=== PATIENT | female | born 1995 | race Caucasian/White ===

== ENCOUNTER 2025-01-09 17:25 | Outpatient (CLI) ==
[~2025-01-09] VITALS: Ht 152.4 cm; Wt 72.2 kg
[2025-01-09 17:30] VITALS: BP 107/70
[2025-01-09] MEDS ORDERED: PRENTAB9 PO (18:35)
[2025-01-09] MEDS ORDERED: OMEP10CASR PO (18:35)
[2025-01-09] MEDS ORDERED: HOME MED LIST COMPLETE! XX SCH (18:35)
[2025-01-09] MEDS ORDERED: ALLE180T33 PO (18:35)
== END 2025-01-09 19:35 | disposition home or self-care (01) ==
LOC: M LDO 17:25
PROVIDERS: ATTEND Advanced Practice Midwife
DX: O36.8120 Decreased fetal movements, second trimester, not applicable or unspecified (principal); Z91.010 Allergy to peanuts; Z91.030 Bee allergy status; Z3A.25 25 weeks gestation of pregnancy
CPT/HCPCS: 59025; G0463

== ENCOUNTER → 2025-02-04 | Outpatient (CLI) | payer OTHER ==
[~2025-02-04] MED LIST: ALLE180T33 PO; OMEP10CASR PO; PRENTAB9 PO
== END ==
LOC: M WHC 09:31
PROVIDERS: ATTEND Obstetrics & Gynecology
DX: O36.5993 Maternal care for other known or suspected poor fetal growth, unspecified trimester, fetus 3 (principal); Z3A.28 28 weeks gestation of pregnancy; O99.212 Obesity complicating pregnancy, second trimester; E66.89 Other obesity not elsewhere classified; O32.1XX0 Maternal care for breech presentation, not applicable or unspecified

== ENCOUNTER 2025-02-05 13:17 | Outpatient (CLI) | payer OTHER ==
[~2025-02-05] VITALS: Ht 152.4 cm; Wt 80.1 kg
[2025-02-05] VITALS (7 sets, daily range): BP systolic 118–142; BP diastolic 58–73
[2025-02-05] MEDS ORDERED: HOME MED LIST COMPLETE! XX SCH (13:30)
[2025-02-05 14:56] LABS: HEMATOCRIT 36.7 % (36.0-47.0); HEMOGLOBIN 12.6 g/dl (12.0-15.5); MEAN CORPUSCULAR HEMOGLOBIN 30.7 pg (27.0-33.0); MEAN CORPUSCULAR HGB CONC 34.3 g/dl (32.0-36.5); MEAN CORPUSCULAR VOLUME 89.3 fl (80.0-96.0); PLATELET COUNT, AUTOMATED 125 10^3/uL (150-450); RED BLOOD COUNT 4.11 10^6/uL (4.00-5.40)
[2025-02-05 15:12] LABS: TOTAL PROTEIN,RANDOM URINE 48.4 MG/DL (0.0-14.0)
[2025-02-05 15:17] LABS: LDH LACTATE DEHYDROGENASE 157 U/L (120-246)
[2025-02-05 15:18] LABS: ALBUMIN 2.6 G/DL (3.2-5.2); ALKALINE PHOSPHATASE 63 U/L (35-104); ALT/SGPT 13 U/L (7.0-40); AST/SGOT 11 U/L (<34); BILIRUBIN,TOTAL 0.2 MG/DL (0.3-1.2); BLOOD UREA NITROGEN 12 MG/DL (9-23); CALCIUM LEVEL 8.6 MG/DL (8.5-10.1); CARBON DIOXIDE LEVEL 23 MMOL/L (20-31); CHLORIDE LEVEL 107 MMOL/L (98-107); CREATININE FOR GFR 0.62 MG/DL (0.55-1.30); GLOMERULAR FILTRATION RATE > 60.0 (>60); GLUCOSE, FASTING 83 MG/DL (60-100); POTASSIUM SERUM 4.1 MMOL/L (3.5-5.1); SODIUM LEVEL 140 MMOL/L (136-145); TOTAL PROTEIN 5.8 G/DL (5.7-8.2)
[2025-02-05] MEDS: BETAMETHASONE SOLUSPAN 6MG/ML 5ML VIAL IM STA (16:18)
[2025-02-05] MEDS: MAGNESIUM *L&D* 4GM/100ML BAG (40MG/ML) IV ONE (16:45)
[2025-02-05 17:55] LABS: HEPATITIS B SURFACE ANTIBODY POSITIVE (POSITIVE)
[2025-02-05 18:21] LABS: HIV 1&2 SCREEN NEGATIVE (NEGATIVE)
[2025-02-05 18:28] LABS: HEPATITIS C VIRUS ABY INDEX 0.03 INDEX (<0.8)
== END 2025-02-05 20:04 | disposition other institution (70) ==
LOC: M LDO 13:17
PROVIDERS: ATTEND Obstetrics & Gynecology
DX: O26.893 Other specified pregnancy related conditions, third trimester (principal); O36.5930 Maternal care for other known or suspected poor fetal growth, third trimester, not applicable or unspecified; O99.113 Other diseases of the blood and blood-forming organs and certain disorders involving the immune mechanism complicating pregnancy, third trimester; R03.0 Elevated blood-pressure reading, without diagnosis of hypertension; D69.6 Thrombocytopenia, unspecified; Z91.010 Allergy to peanuts; Z91.030 Bee allergy status; Z3A.29 29 weeks gestation of pregnancy
CPT/HCPCS: 36415; 59025; 80053; 82247; 82570; 83615; 84156; 84450; 84460; 84550; 85027; 86706; 86780; 86803; 86850; 86900; 86901; 87389; 96372; G0463; J0702; J3475

== ENCOUNTER → 2025-07-24 | Outpatient (CLI) | payer OTHER ==
[~2025-07-24] MED LIST changes: +AMOX875T2 PO; +VENTAER INH
== END ==
LOC: M WHC 11:48
PROVIDERS: ATTEND Physician Assistant
DX: N63.13 Unspecified lump in the right breast, lower outer quadrant (principal)

== ENCOUNTER 2025-07-26 13:52 | Observation (INO) | payer OTHER ==
[~2025-07-26] VITALS: Ht 152.4 cm; Wt 82.3 kg
[~2025-07-26 13:52] MED LIST changes: -AMOX875T2 PO; -VENTAER INH
[2025-07-26 15:21] LABS: BASO # 0.1 10^3/uL (0.0-0.2); BASO % 0.3 % (0.0-1.0); EOS # 0.2 10^3/uL (0.0-0.5); EOS % 0.7 % (0.0-3.0); LYMPH # 2.4 10^3/uL (1.5-5.0); LYMPH % 11.2 % (24.0-44.0); MONO # 1.2 10^3/uL (0.0-0.8); MONO % 5.7 % (2.0-8.0); NEUTROPHILS # 17.4 10^3/uL (1.5-8.5); NEUTROPHILS % 81.7 % (36.0-66.0); PLATELET COUNT, AUTOMATED 252 10^3/uL (150-450)
[2025-07-26] MEDS: NS (Normal Saline) 0.9% 1,000 ML IV ONE ×2 (15:25→16:47)
[2025-07-26 16:09] LABS: CALCIUM LEVEL 9.0 MG/DL (8.5-10.1); CARBON DIOXIDE LEVEL 24 MMOL/L (20-31); CHLORIDE LEVEL 108 MMOL/L (98-107); CREATININE FOR GFR 0.69 MG/DL (0.55-1.30); GLOMERULAR FILTRATION RATE > 90.0 (>60); POTASSIUM SERUM 4.2 MMOL/L (3.5-5.1); SODIUM LEVEL 143 MMOL/L (136-145)
[2025-07-26 16:16] LABS: HCG, SERUM QUALITATIVE NEGATIVE (NEGATIVE)
[2025-07-26] MEDS: KETOROLAC 30 MG/ML 1 ML VIAL IV ONE (16:54)
[2025-07-26 17:58] LABS: BASO # 0.1 10^3/uL (0.0-0.2); BASO % 0.3 % (0.0-1.0); EOS # 0.2 10^3/uL (0.0-0.5); EOS % 1.2 % (0.0-3.0); LYMPH # 3.3 10^3/uL (1.5-5.0); LYMPH % 18.1 % (24.0-44.0); MONO # 1.3 10^3/uL (0.0-0.8); MONO % 7.0 % (2.0-8.0); NEUTROPHILS # 13.2 10^3/uL (1.5-8.5); NEUTROPHILS % 73.0 % (36.0-66.0); PLATELET COUNT, AUTOMATED 268 10^3/uL (150-450)
[2025-07-26 19:09] LABS: KETONE, URINE AUTO RFX 1+ mg/dL (NEGATIVE); LEUKOCYTE ESTERASE UR AUTO RFX NEGATIVE (NEGATIVE); MUCUS, URINE RFX MODERATE (NEGATIVE); NITRITE, URINE AUTO RFX NEGATIVE (NEGATIVE); RBC, URINE AUTO RFX 2 /HPF (0-3); SQUAM EPITHELIAL CELL UR AURFX 17 /HPF (0-6); WBC, URINE AUTO RFX 1 /HPF (0-3)
[2025-07-26] MEDS ORDERED: ISOVUE-370 76% 100 ML VIAL As Ordered ONE (19:11)
[2025-07-26] MEDS ORDERED: ONDANSETRON 4MG 2ML VIAL IV PRN (21:50)
[2025-07-26] MEDS ORDERED: VENTAER INH (22:08)
[2025-07-26] MEDS ORDERED: HOME MED LIST COMPLETE! XX SCH (22:10)
[2025-07-26] MEDS: NS (Normal Saline) 0.9% 1,000 ML IV SCH (22:28)
[2025-07-26] MEDS: PIPERACILLIN/TAZOBACTAM SOD 4.5 GM in DEXTROSE 5% (D5W) ADV/MINI-BAG 50 ML IV ONE (22:28)
[2025-07-27] VITALS (8 sets, daily range): BP systolic 83–109; BP diastolic 47–69; TEMP 98.3–99; O2SAT 96–98
[2025-07-27] MEDS: metroNIDAZOLE 500 MG in IV 1 EA IV SCH (00:36)
[2025-07-27] MEDS: KETOROLAC TROMETHAMINE 10 MG TAB PO PRN (06:51)
[2025-07-27 07:21] LABS: PLATELET COUNT, AUTOMATED 260 10^3/uL (150-450)
[2025-07-27 07:44] LABS: CALCIUM LEVEL 8.0 MG/DL (8.5-10.1); CARBON DIOXIDE LEVEL 21 MMOL/L (20-31); CHLORIDE LEVEL 114 MMOL/L (98-107); CREATININE FOR GFR 0.64 MG/DL (0.55-1.30); GLOMERULAR FILTRATION RATE > 90.0 (>60); MAGNESIUM LEVEL 2.0 MG/DL (1.8-2.4); POTASSIUM SERUM 4.4 MMOL/L (3.5-5.1); SODIUM LEVEL 144 MMOL/L (136-145)
[2025-07-27] MEDS: NS (Normal Saline) 0.9% 1,000 ML IV ONE (08:38)
[2025-07-27] MEDS ORDERED: AUGMENTIN 875 MG TAB PO SCH (09:00)
[2025-07-27] MEDS: ENOXAPARIN 40 MG/0.4 ML SYRINGE (J1650 PER 10MG) SC SCH (09:00)
[2025-07-27] MEDS: PIPERACILLIN/TAZOBACTAM SOD 3.375 GM in DEXTROSE 5% (D5W) ADV/MINI-BAG 50 ML IV SCH (09:32)
[2025-07-27] MEDS: ALBUTEROL 90 MCG/ACT 8 GM HFA INHALER INH PRN (16:44)
[2025-07-27] MEDS: FEXOFENADINE 60 MG TAB PO SCH (16:45)
[2025-07-27] MEDS: OMEPRAZOLE 20MG CAP PO SCH (16:45)
[2025-07-27] MEDS: ACETAMINOPHEN 325 MG TAB PO PRN (17:22)
[2025-07-28 04:00] VITALS: BP 119/67; TEMP 98.2; O2SAT 97
[2025-07-28 07:47] LABS: ALT/SGPT 33 U/L (7.0-40); AST/SGOT 24 U/L (<34); CALCIUM LEVEL 8.0 MG/DL (8.5-10.1); CARBON DIOXIDE LEVEL 20 MMOL/L (20-31); CHLORIDE LEVEL 114 MMOL/L (98-107); CREATININE FOR GFR 0.73 MG/DL (0.55-1.30); GLOMERULAR FILTRATION RATE > 90.0 (>60); POTASSIUM SERUM 4.8 MMOL/L (3.5-5.1); SODIUM LEVEL 144 MMOL/L (136-145)
[2025-07-28 09:06] LABS: PLATELET COUNT, AUTOMATED 229 10^3/uL (150-450)
[2025-07-28] MEDS: AUGMENTIN 875 MG TAB PO SCH (09:28)
[2025-07-28] MEDS: OMEPRAZOLE 20MG CAP PO SCH (09:35)
[2025-07-28 12:20] VITALS: BP_SYST 122; BP_SYST 136; BP_DIAS 58; BP_DIAS 67; TEMP 97.7; TEMP 98.9; O2SAT 97; O2SAT 98
[2025-07-28] MEDS ORDERED: AMOX875T2 PO (12:54)
== END 2025-07-28 13:45 | disposition home or self-care (01) ==
LOC: M ED 13:52 → EDBD 13:52 → M ED INP 13:53 → M MS4PR 07-27 00:52
PROVIDERS: ADMIT Student in an Organized Health Care Education/Training Program; ATTEND Internal Medicine
DX: R55 Syncope and collapse (principal); I95.9 Hypotension, unspecified; K04.7 Periapical abscess without sinus; R00.1 Bradycardia, unspecified; I36.1 Nonrheumatic tricuspid (valve) insufficiency; I34.0 Nonrheumatic mitral (valve) insufficiency; I27.0 Primary pulmonary hypertension; K21.9 Gastro-esophageal reflux disease without esophagitis; Z79.899 Other long term (current) drug therapy; Z79.2 Long term (current) use of antibiotics
CPT/HCPCS: 36415; 70450; 70487; 71275; 74177; 80048; 80053; 81001; 83605; 83735; 84145; 84443; 84703; 85025; 85027; 87040; 93005; 93041; 93306; 94640; 94760; 96361; 96365; 96366; 96367; 96375; 96376; 97161; 97530; 99285; J1836; J1885; J2543; Q9967

== ENCOUNTER → 2025-09-06 | Outpatient (CLI) | payer OTHER ==
[~2025-09-06] MED LIST changes: +AMOX875T2 PO; +PROHANCE 279.3MG/ML 15ML VIAL ONE; +VENTAER INH
== END ==
LOC: M PLAIMG 09:22
PROVIDERS: ATTEND General Practice
DX: Q51.810 Arcuate uterus (principal)
CPT/HCPCS: 72197; A9576

== ENCOUNTER 2025-09-11 22:14 | Emergency (ER) | payer OTHER ==
[~2025-09-11] VITALS: Ht 152.4 cm; Wt 78.8 kg
[~2025-09-11 22:14] MED LIST changes: -PROHANCE 279.3MG/ML 15ML VIAL ONE
[2025-09-11 23:49] LABS: BASO # 0.1 10^3/uL (0.0-0.2); BASO % 0.3 % (0.0-1.0); EOS # 0.3 10^3/uL (0.0-0.5); EOS % 1.9 % (0.0-3.0); LYMPH # 3.5 10^3/uL (1.5-5.0); LYMPH % 21.4 % (24.0-44.0); MONO # 1.0 10^3/uL (0.0-0.8); MONO % 6.0 % (2.0-8.0); NEUTROPHILS # 11.5 10^3/uL (1.5-8.5); NEUTROPHILS % 69.9 % (36.0-66.0); PLATELET COUNT, AUTOMATED 325 10^3/uL (150-450)
[2025-09-11 23:59] LABS: HCG, SERUM QUALITATIVE NEGATIVE (NEGATIVE)
[2025-09-12 00:02] LABS: INR 0.91
[2025-09-12 00:04] LABS: ALT/SGPT 26 U/L (7.0-40); AST/SGOT 13 U/L (<34); CALCIUM LEVEL 9.4 MG/DL (8.5-10.1); CARBON DIOXIDE LEVEL 26 MMOL/L (20-31); CHLORIDE LEVEL 106 MMOL/L (98-107); CK-MB VALUE MASS < 1.0 NG/ML (<3.6); CPK CREATINE PHOSPHOKINASE 71 U/L (34-145); CREATININE FOR GFR 0.83 MG/DL (0.55-1.30); GLOMERULAR FILTRATION RATE > 90.0 (>60); POTASSIUM SERUM 3.8 MMOL/L (3.5-5.1); SODIUM LEVEL 141 MMOL/L (136-145)
[2025-09-12] MEDS: NS (Normal Saline) 0.9% 1,000 ML IV ONE (06:15)
[2025-09-12 07:02] LABS: PROLACTIN 20.41 NG/ML
[2025-09-12 07:03] LABS: CORTISOL AM 7.7 UG/DL (4.3-22.4)
[2025-09-12 07:06] LABS: FREE T4 1.18 NG/DL (0.89-1.76)
[2025-09-12 09:06] LABS: KETONE, URINE AUTO RFX NEGATIVE (NEGATIVE); LEUKOCYTE ESTERASE UR AUTO RFX NEGATIVE (NEGATIVE); MUCUS, URINE RFX MODERATE (NEGATIVE); NITRITE, URINE AUTO RFX NEGATIVE (NEGATIVE); RBC, URINE AUTO RFX 1 /HPF (0-3); SQUAM EPITHELIAL CELL UR AURFX 17 /HPF (0-6); WBC, URINE AUTO RFX 5 /HPF (0-3)
[2025-09-12] MEDS ORDERED: PROHANCE 279.3MG/ML 15ML VIAL As Ordered ONE (09:57)
[2025-09-12 12:04] VITALS: BP 100/55; TEMP 97; O2SAT 96
[2025-09-12] MEDS ORDERED: OMEP1CAP73 PO (13:17)
[2025-09-12] MEDS ORDERED: HOME MED LIST COMPLETE! XX SCH (13:20)
== END 2025-09-12 14:31 | disposition home or self-care (01) ==
LOC: M ED 22:14
DX: R51.9 Headache, unspecified (principal); R55 Syncope and collapse; R07.9 Chest pain, unspecified; Z79.899 Other long term (current) drug therapy; Z91.030 Bee allergy status; Z91.018 Allergy to other foods
CPT/HCPCS: 70553; 71045; 80048; 80076; 81001; 82533; 82550; 82553; 83690; 83880; 84146; 84439; 84443; 84484; 84703; 85025; 85610; 85730; 87486; 87581; 87633; 87798; 93005; 96361; 96374; 96375; 99285; A9576; J1100; J2765